=== PATIENT | male | born 1985 | race Caucasian/White ===

== ENCOUNTER 2024-04-21 18:32 | Emergency (ER) | payer SELFPAY ==
[~2024-04-21] VITALS: Ht 170.2 cm; Wt 94.6 kg
[2024-04-21 18:36] VITALS: BP 140/86; TEMP 97.2; O2SAT 98
== END 2024-04-21 21:00 | disposition left against medical advice (07) ==
LOC: M ED 18:32
DX: Z53.21 Procedure and treatment not carried out due to patient leaving prior to being seen by health care provider (principal)

== ENCOUNTER 2024-05-05 07:20 | Emergency (ER) | payer SELFPAY ==
[~2024-05-05] VITALS: Ht 170.2 cm; Wt 94.4 kg
[2024-05-05 07:28] VITALS: BP 177/72; TEMP 97.9; O2SAT 98
== END 2024-05-05 09:09 | disposition left against medical advice (07) ==
LOC: M ED 07:20 → EDBD 07:20 → M ED 09:09
DX: Z53.21 Procedure and treatment not carried out due to patient leaving prior to being seen by health care provider (principal)

== ENCOUNTER 2024-05-09 08:55 | Emergency (ER) | payer OTHER, SELFPAY ==
[~2024-05-09] VITALS: Ht 170.2 cm; Wt 100.8 kg
[2024-05-09 09:01] VITALS: BP 144/70; TEMP 96.3; O2SAT 99
[2024-05-09] MEDS ORDERED: IBUP-1022 PO (11:17)
== END 2024-05-09 11:21 | disposition home or self-care (01) ==
LOC: M ED 08:55
DX: R20.2 Paresthesia of skin (principal); M79.641 Pain in right hand; Z79.1 Long term (current) use of non-steroidal anti-inflammatories (NSAID)

== ENCOUNTER 2024-05-18 10:45 | Emergency (ER) | payer OTHER ==
[~2024-05-18] VITALS: Ht 170.2 cm; Wt 99.6 kg
[~2024-05-18 10:45] MED LIST: IBUP-1022 PO
[2024-05-18] MEDS: ACETAMINOPHEN 500 MG TAB PO ONE (12:32)
[2024-05-18] MEDS: KETOROLAC 30 MG/ML 1ML VIAL IM ONE (12:33)
[2024-05-18] MEDS ORDERED: KETO10TAB PO (13:37)
[2024-05-18 13:48] VITALS: BP 173/97; TEMP 97; O2SAT 98
== END 2024-05-18 13:50 | disposition home or self-care (01) ==
LOC: M ED 10:45
DX: S63.91XA Sprain of unspecified part of right wrist and hand, initial encounter (principal); Y92.9 Unspecified place or not applicable; Y93.9 Activity, unspecified; Y99.9 Unspecified external cause status; Z79.2 Long term (current) use of antibiotics
CPT/HCPCS: 73200; 96372; 99283; J1885

== ENCOUNTER 2024-07-25 10:40 | Inpatient (IN) | payer OTHER ==
[~2024-07-25] VITALS: Ht 170.2 cm; Wt 88.0 kg
[~2024-07-25 10:40] MED LIST changes: +KETO10TAB PO
[2024-07-25] MEDS: NS (Normal Saline) 0.9% 1,000 ML IV ONE ×2 (10:56→13:18)
[2024-07-25] MEDS: ONDANSETRON 4MG 2ML VIAL IV ONE (11:06)
[2024-07-25] MEDS: MORPHINE 4 MG/ML 1ML VIAL IV PRN ×2 (11:06→18:02)
[2024-07-25 11:13] LABS: VENOUS BASE EXCESS 2.8 (-2.0-2.0); VENOUS HCO3 29.7 MMOL/L (23.0-27.0); VENOUS O2 SATURATION 54.2 % (60.0-80.0); VENOUS PARTIAL PRESSURE O2 27.7 mmHg (30.0-50.0); VENOUS PH 7.366 UNITS (7.330-7.430); VENOUS STANDARD HCO3 25.6 MMOL/L; VENOUS TOTAL CO2 31.3 MMOL/L (24.0-28.0)
[2024-07-25] MEDS ORDERED: ISOVUE-370 76% 100ML VIAL As Ordered ONE (11:14)
[2024-07-25 11:21] LABS: BASO # 0.1 10^3/uL (0.0-0.2); BASO % 0.3 % (0.0-1.0); EOS # 0.4 10^3/uL (0.0-0.5); EOS % 2.4 % (0.0-3.0); HEMOGLOBIN 16.8 g/dl (13.5-17.5); LYMPH # 2.6 10^3/uL (1.5-5.0); LYMPH % 17.9 % (24.0-44.0); MEAN CORPUSCULAR HEMOGLOBIN 30.1 pg (27.0-33.0); MEAN CORPUSCULAR HGB CONC 32.9 g/dl (32.0-36.5); MEAN CORPUSCULAR VOLUME 91.4 fl (80.0-96.0); MONO # 1.3 10^3/uL (0.0-0.8); MONO % 8.5 % (2.0-8.0); NEUTROPHILS # 10.3 10^3/uL (1.5-8.5); NEUTROPHILS % 70.5 % (36.0-66.0); PLATELET COUNT, AUTOMATED 192 10^3/uL (150-450); RED BLOOD COUNT 5.58 10^6/uL (4.30-6.10); WHITE BLOOD COUNT 14.6 10^3/uL (4.0-10.0)
[2024-07-25 11:31] LABS: INR 0.83; PARTIAL THROMBOPLASTIN TIME 27.1 SECONDS (24.8-34.2); PROTHROMBIN TIME 11.7 SECONDS (12.5-14.5)
[2024-07-25 11:44] LABS: LIPASE 27 U/L (12-53)
[2024-07-25 11:46] LABS: ALBUMIN 3.9 G/DL (3.2-5.2); ALKALINE PHOSPHATASE 82 U/L (40-129); ALT/SGPT 43 U/L (7.0-40); AMYLASE 29 U/L (30-118); AST/SGOT 33 U/L (<34); BILIRUBIN,DIRECT 0.2 MG/DL (<0.4); BILIRUBIN,TOTAL 0.8 MG/DL (0.3-1.2); BLOOD UREA NITROGEN 18 MG/DL (9-23); CARBON DIOXIDE LEVEL 30 MMOL/L (20-31); CHLORIDE LEVEL 102 MMOL/L (98-107); CREATININE FOR GFR 0.95 MG/DL (0.70-1.30); GLOMERULAR FILTRATION RATE > 90.0 (>60); GLUCOSE, FASTING 100 MG/DL (60-100); POTASSIUM SERUM 4.1 MMOL/L (3.5-5.1); SODIUM LEVEL 140 MMOL/L (136-145)
[2024-07-25] MEDS: MORPHINE 2 MG/ML 1ML VIAL IV PRN (13:19)
[2024-07-25] MEDS ORDERED: CYCLOBENZAPRINE 5MG TABLET PO PRN (14:05)
[2024-07-25] MEDS ORDERED: MIRALAX *UNIT DOSE* 17GM PACKET PO PRN (14:05)
[2024-07-25] MEDS ORDERED: MORPHINE 2 MG/ML 1ML VIAL IV PRN ×2 (14:05→16:10)
[2024-07-25] MEDS ORDERED: ACETAMINOPHEN 325 MG TAB PO PRN (14:05)
[2024-07-25] MEDS ORDERED: MORPHINE 4 MG/ML 1ML VIAL IV PRN ×2 (14:05→16:10)
[2024-07-25 14:32] LABS: APPEARANCE, URINE CLEAR (CLEAR); BACTERIA, URINE AUTO NEGATIVE (NEGATIVE); BILIRUBIN, URINE AUTO NEGATIVE (NEGATIVE); BLOOD, URINE BLOOD NEGATIVE (NEGATIVE); COLOR, URINE YELLOW (YELLOW); GLUCOSE, URINE (UA) AUTO NEGATIVE (NEGATIVE); KETONE, URINE AUTO NEGATIVE (NEGATIVE); LEUKOCYTE ESTERASE, URINE AUTO NEGATIVE (NEGATIVE); MUCUS, URINE SMALL (NEGATIVE); NITRITE, URINE AUTO NEGATIVE (NEGATIVE); PROTEIN, URINE AUTO NEGATIVE (NEGATIVE); RBC, URINE AUTO 0 /HPF (0-3); SPECIFIC GRAVITY URINE AUTO 1.042 (1.002-1.035); SQUAMOUS EPITHELIAL CELL UR AU 0 /HPF (0-6); UROBILINOGEN, URINE AUTO 0.2 mg/dL (0.0-2.0); WBC, URINE AUTO 0 /HPF (0-3)
[2024-07-25] MEDS ORDERED: IBUP-1720 PO (14:48)
[2024-07-25] MEDS ORDERED: HOME MED LIST COMPLETE! XX SCH (14:50)
[2024-07-25 14:54] LABS: BARBITURATES URINE NEGATIVE (NEGATIVE); BENZODIAZEPINES URINE NEGATIVE (NEGATIVE); COCAINE METABOLITE URINE NEGATIVE (NEGATIVE); METHADONE URINE NEGATIVE (NEGATIVE); PHENCYCLIDINE URINE NEGATIVE (NEGATIVE)
[2024-07-25 14:55] LABS: AMPHETAMINES LEVEL URINE POSITIVE (NEGATIVE); CANNABINOIDS URINE POSITIVE (NEGATIVE); OPIATES URINE POSITIVE (NEGATIVE)
[2024-07-25] MEDS ORDERED: ONDANSETRON 4MG 2ML VIAL IV PRN (16:10)
[2024-07-25] MEDS: NS (Normal Saline) 0.9% 1,000 ML IV SCH (16:45)
[2024-07-25] MEDS: KETOROLAC 30 MG/ML 1ML VIAL IV SCH (16:46)
[2024-07-25 17:00] VITALS: BP 141/94; TEMP 97.5; O2SAT 100
[2024-07-25 17:09] LABS: HEMATOCRIT 45.8 % (42.0-52.0); HEMOGLOBIN 15.1 g/dl (13.5-17.5); MEAN CORPUSCULAR HEMOGLOBIN 30.2 pg (27.0-33.0); MEAN CORPUSCULAR VOLUME 91.6 fl (80.0-96.0); PLATELET COUNT, AUTOMATED 168 10^3/uL (150-450); WHITE BLOOD COUNT 11.7 10^3/uL (4.0-10.0)
[2024-07-25 18:02] LABS: HEMATOCRIT 44.6 % (42.0-52.0); HEMOGLOBIN 14.9 g/dl (13.5-17.5)
[2024-07-25 21:55] VITALS: BP 114/60; TEMP 97.8; O2SAT 99
[2024-07-25] MEDS: SENOKOT S TAB PO SCH (23:30)
[2024-07-26] VITALS: BP 116/77; TEMP 97.6; O2SAT 98
[2024-07-26 00:20] LABS: HEMATOCRIT 44.2 % (42.0-52.0); HEMOGLOBIN 14.7 g/dl (13.5-17.5)
[2024-07-26 06:07] LABS: HEMATOCRIT 44.1 % (42.0-52.0); HEMOGLOBIN 14.7 g/dl (13.5-17.5); MEAN CORPUSCULAR HEMOGLOBIN 30.5 pg (27.0-33.0); MEAN CORPUSCULAR HGB CONC 33.3 g/dl (32.0-36.5); MEAN CORPUSCULAR VOLUME 91.5 fl (80.0-96.0); PLATELET COUNT, AUTOMATED 155 10^3/uL (150-450); RED BLOOD COUNT 4.82 10^6/uL (4.30-6.10); WHITE BLOOD COUNT 9.8 10^3/uL (4.0-10.0)
[2024-07-26 06:40] LABS: BLOOD UREA NITROGEN 16 MG/DL (9-23); CALCIUM LEVEL 7.9 MG/DL (8.5-10.1); CARBON DIOXIDE LEVEL 27 MMOL/L (20-31); CHLORIDE LEVEL 106 MMOL/L (98-107); CREATININE FOR GFR 0.94 MG/DL (0.70-1.30); GLOMERULAR FILTRATION RATE > 90.0 (>60); GLUCOSE, FASTING 91 MG/DL (60-100); MAGNESIUM LEVEL 1.9 MG/DL (1.8-2.4); POTASSIUM SERUM 4.1 MMOL/L (3.5-5.1); SODIUM LEVEL 139 MMOL/L (136-145)
[2024-07-26 07:40] LABS: ATYPICAL LYMPH 12 % (0-5); EOSINOPHILS 2 % (0-3); LYMPHOCYTES 18 % (16-44); MONOCYTES 6 % (0-5); NEUTROPHILS 62 % (28-66)
[2024-07-26 07:41] LABS: PLATELET ESTIMATE NORMAL (NORMAL)
[2024-07-26 08:00] VITALS: BP 118/73; TEMP 98.1; O2SAT 97
[2024-07-26 12:00] VITALS: BP 124/76; TEMP 97.7; O2SAT 97
[2024-07-26] MEDS: PERCOCET 5MG/325MG TAB PO PRN (12:28)
[2024-07-26 16:00] VITALS: BP 114/67; TEMP 97.9; O2SAT 98
[2024-07-26 20:48] VITALS: BP 119/74; TEMP 97.7; O2SAT 92
[2024-07-26 23:53] VITALS: BP 130/82; TEMP 97.3; O2SAT 94
[2024-07-27 04:07] VITALS: BP 136/85; TEMP 97.9; O2SAT 96
[2024-07-27 06:14] LABS: BASO % 0.3 % (0.0-1.0); EOS # 0.5 10^3/uL (0.0-0.5); EOS % 4.2 % (0.0-3.0); HEMATOCRIT 44.6 % (42.0-52.0); HEMOGLOBIN 14.9 g/dl (13.5-17.5); LYMPH # 2.3 10^3/uL (1.5-5.0); LYMPH % 18.7 % (24.0-44.0); MEAN CORPUSCULAR HEMOGLOBIN 30.9 pg (27.0-33.0); MEAN CORPUSCULAR HGB CONC 33.4 g/dl (32.0-36.5); MEAN CORPUSCULAR VOLUME 92.5 fl (80.0-96.0); MONO # 0.8 10^3/uL (0.0-0.8); MONO % 6.2 % (2.0-8.0); NEUTROPHILS # 8.8 10^3/uL (1.5-8.5); NEUTROPHILS % 70.4 % (36.0-66.0); PLATELET COUNT, AUTOMATED 168 10^3/uL (150-450); RED BLOOD COUNT 4.82 10^6/uL (4.30-6.10); WHITE BLOOD COUNT 12.5 10^3/uL (4.0-10.0)
[2024-07-27 06:36] LABS: BLOOD UREA NITROGEN 14 MG/DL (9-23); CALCIUM LEVEL 8.3 MG/DL (8.5-10.1); CARBON DIOXIDE LEVEL 27 MMOL/L (20-31); CHLORIDE LEVEL 106 MMOL/L (98-107); GLOMERULAR FILTRATION RATE > 90.0 (>60); GLUCOSE, FASTING 100 MG/DL (60-100); MAGNESIUM LEVEL 1.8 MG/DL (1.8-2.4); POTASSIUM SERUM 4.3 MMOL/L (3.5-5.1); SODIUM LEVEL 140 MMOL/L (136-145)
[2024-07-27 08:00] VITALS: BP 130/72; TEMP 97.2; O2SAT 100
[2024-07-27] MEDS: PERCOCET 5MG/325MG TAB PO PRN (08:18)
[2024-07-27 12:00] VITALS: BP 149/101; TEMP 97.9; O2SAT 98
[2024-07-27 16:00] VITALS: BP 134/91; TEMP 97.7; O2SAT 100
[2024-07-27] MEDS ORDERED: PERCOCET PO (17:58)
[2024-07-27] MEDS ORDERED: IBUP-1022 PO (17:58)
== END 2024-07-27 18:55 | disposition home or self-care (01) | DRG 342 ==
LOC: M ED 10:40 → M ED INP 16:07 → M MS5PR 17:05
PROVIDERS: ADMIT Surgery; ATTEND Surgery
DX: S82.302A Unspecified fracture of lower end of left tibia, initial encounter for closed fracture (principal); J98.11 Atelectasis; W13.2XXA Fall from, out of or through roof, initial encounter; S30.0XXA Contusion of lower back and pelvis, initial encounter; S92.514A Nondisplaced fracture of proximal phalanx of right lesser toe(s), initial encounter for closed fracture; F19.10 Other psychoactive substance abuse, uncomplicated; Y92.9 Unspecified place or not applicable

== ENCOUNTER → 2024-08-03 | Outpatient (CLI) | payer OTHER, MEDICAID ==
[~2024-08-03] MED LIST changes: +IBUP-1720 PO; +PERCOCET PO
== END ==
LOC: M SOG 09:29
PROVIDERS: ATTEND Physician Assistant
DX: M79.662 Pain in left lower leg (principal)